=== PATIENT | female | born 1995 | race Caucasian/White ===

== ENCOUNTER 2016-10-30 17:19 | Emergency (ER) | payer SELFPAY ==
--- NOTE | 2016-10-30 19:42 | ERNOTE ---
Integumentary HPI - Narrative Date of Service: 10/30/16 - General Presenting Symptoms: rash Time Seen by Provider: 10/30/16 19:25 Source: patient Exam Limitations: no limitations - Immun/Allergies/Home Medications Immunizations: IMMUNIZATION HX Immunizations Up to Date Yes History of Influenza Vaccine No Hx Pneumococcal Vaccination No Allergies/Adverse Reactions: Allergies Allergy/AdvReac Type Severity Reaction Status Date / Time Sulfa (Sulfonamide Allergy Verified 10/30/16 17:49 Antibiotics) Home Medications: HOME MEDICATIONS Pnv95/Iron Fum/Folic Acid [ Caplet] 1 each PO DAILY 09/10/15 [Last Taken 12/16/15 12:00] - History of Present Illness Narrative: RASH ON HER ABDOMEN. SHE STATES SHE HAS ALWAYS HAD ABOUR 3 SMALL SALMON COLORED SPOTS ON HER ABDOMEN BUT RECENTLY SHE NOTICED MANY MORE IN THE SAME GENERAL AREA. NO ITCHING OR OTHER PROBLEM. SHE IS CURRENTLY . DENIES MEDS. NO ONE ELSE AT HOME HAS THE SAME. IT HAS BEGUN TO BE MUCH WARMER HERE IN THE LAST WEEK THAN IT HAS BEEN ALL YEAR. Review of Systems - Review of Systems Constitutional: Present: See HPI Skin: Present: See HPI, rash All Other Systems: All systems neg except as marked - Patient's Past Medical History Patient History - Medical: Anxiety, Depression Patient History - Cardiac/Respiratory: No pertinent hx Patient History - Cancer: No Hx of Cancer Patient History - Surgical Procedures: Ear Tubes Patient History - Other: None LMP (females 10-50): 2 months LMP (Calendar): 03/21/15 - Social History Living Situations: spouse Abuse History: No History of abuse Psych History: Hx of Anxiety, Hx of Depression Smoking Status: Current every day smoker Have you smoked in the past 12 months: Yes Do you dip or chew tobacco: No Alcohol Use: none Drug Use: none - Immunizations Immunizations Up to Date: Yes Hx Pneumococcal Vaccination: No History of Influenza Vaccine: No Physical Exam - Physical Exam General Appearance: Present: wd/wn, alert, no apparent distress Skin Exam: Present: skin rash - SHE HAS AN AN AREA ABOUT BROAD A HAND ON HER MID UPPER ABDOMEN WITH TINEA VERSICOLOR LESIONS. NO OTHER ON HER BACK OR ABDOMEN. WHEN I MENTIONED THE NAME SHE TOLD HER "I TOLD YOU" SHE HAS OBVIOUSLY BEEN READING ABOUT IT. ED Progress - Vital Signs Vital Signs: Vital Signs 10/30/16 17:44 Temperature 37.1 C Pulse Rate 92 Respiratory 18 Rate Blood Pressure 109/58 O2 Sat by Pulse 99 Oximetry - Progress/Reassessment Chief Complaint: Rash Departure Clinical Impression: Tinea versicolor - Departure Disposition: Home self-care Condition: Good Additional Instructions: TINEA VERSICOLOR THIS IS A COMMON SUPERFICIAL FUNGAL SKIN RASH. YOU CAN USE A SELINIUNM SOAP OR SHAMPOO DAILY. LEAVE IT ON THE AREA INVOLVED FOR 10 MINUTES THEN RINSE OFF. IT WILL USUALLY IMPROVE AFTER 2-4 WEEKS. FOLLOW UP WITH YOUR DR IF FURTHER PROBLEMS. Referrals: Carmen Marcos MD [Primary Care Provider] -
[2016-10-30 19:50] VITALS: BP 121/69
== END 2016-10-30 19:47 | disposition home or self-care (01) ==
LOC: ER 17:19
DX: B36.0 Pityriasis versicolor (principal); Z72.0 Tobacco use